=== PATIENT | male | born 1960 ===

== ENCOUNTER 2017-03-28 06:05 | Day surgery (SDC) | payer BC ==
[2017-03-28 07:08] VITALS: BMI 30.8
[2017-03-28] MEDS ORDERED: Lidocaine 2% w Epi 1:100,000 Inj IJ ONE (07:12)
[2017-03-28] MEDS ORDERED: EPINEPHrine 1 mg/ml (1:1000) Inj ONE ×2 (07:12→07:52)
[2017-03-28] MEDS ORDERED: Lidocaine 1% Inj (20ml) ONE (07:12)
[2017-03-28] MEDS ORDERED: Succinylcholine 200 mg/10 ml Inj IV ONE (07:23)
[2017-03-28] MEDS ORDERED: Lidocaine 4% (Laryng-O-Jet) Kit MM ONE (07:23)
[2017-03-28] MEDS ORDERED: Lidocaine 1% 5ml Abboject IV ONE (07:23)
[2017-03-28] MEDS ORDERED: Midazolam 2 MG/2 ML VIAL ONE (07:23)
[2017-03-28] MEDS ORDERED: Propofol 10 mg/ml Inj (20 ML) ONE (07:23)
--- NOTE | 2017-03-28 07:36 | CP.SDSHP ---
Same Day Surgery H & P - History Proposed Procedure: Right shoulder arthroscopy, possible rotator cuff repair, possible labral repair, possible acromioplasty/synovectomy Pre-Op Diagnosis: Right shoulder rotator cuff tear, impindement, SLAP tear, biceps tendinitis - Previous Medical/Surgical History Cardiac: Hypertension - Allergies Allergies: Allergies No Known Allergies Allergy (Verified 03/28/17 07:07) - Physical Exam Vital Signs: Vital Signs 03/28/17 03/28/17 06:55 07:00 Temperature 97.8 F Pulse Rate 66 66 Respiratory 18 Rate Blood Pressure 129/79 O2 Sat by Pulse 98 Oximetry Mental Status: Alert & Oriented x3 Neuro: WNL Heart: WNL Lungs: WNL GI: WNL - {Optional Preform as Required} Ortho: Other (+radial pulses, sensation intact, Painful limited ROM right shoulder) Other Pertinent Findings: MRI on chart, reviewed - Impression Impression: 57M with right shoulder rotator cuff tear, labral tear, impingement for arthroscopy Pt. Evaluated Today:Candidate for Anesthesia & Procedure: Yes - Date & Time Date: 03/28/17 Time: 07:36 Short Stay Discharge - Short Stay Discharge Admitting Diagnosis/Reason for Visit: M25.511,S46.011A Disposition: HOME/ ROUTINE Referrals: Jacob Moore III, MD [Primary Care Provider] - Past Patient History - Infectious Disease Hx of Infectious Diseases: C.diff - Past Medical History & Family History Past Medical History?: Yes - Past Social History Smoking Status: Former Smoker - CARDIAC Hx Cardiac Disorders: Yes Hx Hypertension: Yes - PULMONARY Hx Respiratory Disorders: No - NEUROLOGICAL Hx Neurological Disorder: No - HEENT Hx HEENT Problems: No - RENAL Hx Chronic Kidney Disease: No - ENDOCRINE/METABOLIC Hx Endocrine Disorders: No - HEMATOLOGICAL/ONCOLOGICAL Hx Blood Disorders: No Hx Blood Transfusions: No - INTEGUMENTARY Hx Dermatological Problems: No - MUSCULOSKELETAL/RHEUMATOLOGICAL Hx Musculoskeletal Disorders: Yes Hx Arthritis: Yes - GASTROINTESTINAL Hx Gastrointestinal Disorders: No - GENITOURINARY/GYNECOLOGICAL Hx Genitourinary Disorders: No - PSYCHIATRIC Hx Emotional Abuse: No Hx Physical Abuse: No - SURGICAL HISTORY Hx Surgeries: Yes Hx Cholecystectomy: Yes - ANESTHESIA Hx Anesthesia: Yes Hx Anesthesia Reactions: No Hx Malignant Hyperthermia: No Has any member of the family had a problem w/ anesthesia?: No
[2017-03-28] MEDS ORDERED: Ropivacaine 0.5% 30ML IV ONE (07:38)
[2017-03-28] MEDS ORDERED: Lactated Ringer's 1,000 ML IV ONE (07:43)
[2017-03-28] MEDS ORDERED: Phenylephrine 10 mg/ml Inj ONE (08:15)
[2017-03-28] MEDS ORDERED: EPINEPHrine 1 mg/ml (1:1000) Inj IV ONE ×2 (08:41)
[2017-03-28] MEDS ORDERED: Lidocaine 1% Inj (20ml) IJ ONE (08:41)
[2017-03-28] MEDS ORDERED: ePHEDrine 50 mg/ml Inj ONE (09:13)
[2017-03-28] MEDS ORDERED: Sodium Chloride 0.9% 10 ML IV ONE (09:14)
[2017-03-28] MEDS ORDERED: Bacitracin Ointment 30 GM TUBE ONE (11:07)
[2017-03-28] MEDS ORDERED: HYDROmorphone 0.5 mg/0.5 ml ISec IVP PRN (11:40)
--- NOTE | 2017-03-28 11:44 | PCM.ANESB1 ---
Interscalene Block - Brachial Plexus Date of Procedure: 03/28/17 Anesthesiologist: Dr. Abad Pre-Procedure Diagnosis: Torn rotator cuff right shoulder Post-Procedure Diagnosis: Torn rotator cuff right shoulder Procedure Performed: Interscalene Block of Brachial Plexus Right - Procedure Interscalene Block of Brachial Plexus: This procedure was explained to the patient that it is for post-operative pain management. Consent was obtained after a thorough discussion with the patient regarding the benefits and possible complications of local anesthetic block of the Brachial Plexus at the Interscalene area. The patient was brought to the Operating Room and standard monitors were applied. Time out was held with the circulating nurse to confirm the correct surgery and appropriate block. After applying Oxygen by nasal cannula and administering IV Sedation, the patient's head was gently rotated away from the right operative shoulder and the anterior scalene groove was carefully palpated. The ultrasound transducer was then applied to the skin in the transverse plane and the brachial plexus was visualized lateral to the carotid artery and in between the anterior and middle scalene muscles. After identification,the anterior lateral portion of the neck was prepped with Chloraprep solution three times and Lidocaine 1% was injected subcutaneously for topical analgesia. At this point, a # 22 gauge Stimuplex 2 inches insulated needle was inserted into the interscalene groove and directed in a caudal and midline direction. The needle was inserted lateral to the ultrasound transducer in-plane towards the brachial plexus in a [id number] direction. Needle advancement was performed carefully under direct ultrasound visualization. Nerve stimulator was used and twitched of the affected extremity including the hand brachialis muscles, biceps and the deltoid was obtained at a current of 0.3MA. After repeated negative aspiration,5cc of 0.5% Ropivacaine were injected and this was followed with 25cc of 0.5% Ropivacaine. Under ultrasound guidance the local anesthetics were observed surrounding the roots of the brachial plexus. The needle was removed intact and sterile dressing was applied. The patient had stable vital signs, was conscious and in no apparent distress. The patient tolerated the interscalene block of the bracheal plexus well with stable vital signs and was prepared for subsequent surgery.
[2017-03-28] MEDS ORDERED: Lactated Ringer's 1,000 ML IV SCH (11:45)
[2017-03-28] MEDS ORDERED: Oxycodone/Acetaminophen 5/325 mg Tab PO PRN (11:55)
--- NOTE | 2017-03-28 12:41 | PCM.SURG1 ---
Surgeon's Initial Post Op Note - Surgeon's Notes Surgeon: Teresa Director Of Cath Lab: KIM Sutherland Type of Anesthesia: General Endo, Block Regional Anesthesia Administered By: Dr Abad Pre-Operative Diagnosis: Rotator cuff tear R shoulder Operative Findings: gr 3 rotator cufftear R shoulder. tear glenoid labrum. biceps tendon avulsion. Acromioclavicular joint arthropathy. Subacromial impingement Post-Operative Diagnosis: as above Operation Performed: arthroscvopic rotator cuff repair. arthroscopic biceps tenodesis. arthroscopic repair slap lesion. arthroscopic partial distal claviculectomy. arthroscopic acromioplasty. arthroscopic subacromial bursectomy/arthroscopic lysis of adhesions Specimen/Specimens Removed: synovium/cartilage/bone Estimated Blood Loss: EBL {In ML}: 10 Blood Products Given: N/A Drains Used: No Drains Post-Op Condition: Good Date of Surgery/Procedure: 03/28/17 Time of Surgery/Procedure: 08:40 (time in room/anesthesia induction time 7:43)
[2017-03-28 13:21] VITALS: RESP 18
[2017-03-28 14:14] VITALS: BP 114/69; PULSE 73; TEMP 97.6; O2SAT 99
--- NOTE | 2017-03-28 18:08 | OP ---
PROCEDURE DATE: 03/28/2017 PREOPERATIVE DIAGNOSIS: Rotator cuff tear on right shoulder. POSTOPERATIVE DIAGNOSES: 1. Grade 3 rotator cuff tear on right shoulder at leading edge of supraspinatus tendon. 2. Tear of glenoid labrum. 3. Avulsion biceps tendon from the superior aspect of the glenoid. 4. Acromiclavicular joint arthropathy. 5. Subacromial impingement. 6. Adhesions and bursitis in the subacromial space. SURGEON: Jacob Moore MD E COMMERCE DIRECTOR: LEODAN Woodward, certified registered nursing assistant warehouse manager. ANESTHESIA: General and regional anesthesia. ANESTHESIOLOGIST: [place] Abad MD OPERATIVE FINDINGS: 1. Again, grade 3 rotator cuff tear of the right shoulder. 2. Tear of glenoid labrum. 3. Biceps tendon avulsion. 4. AC joint arthropathy. 5. Subacromial impingement. 6. Bursitis and adhesions in the subacromial space. PROCEDURE: 1. Arthroscopic rotator cuff repair. 2. Arthroscopic intra-articular biceps tenodesis. 3. Arthroscopic labral repair. 4. Arthroscopic partial distal claviculectomy. 5. Extensive debridement and lysis of adhesions in the subacromial space with partial bursectomy. 6. Partial acromioplasty. BLOOD LOSS: Approximately 15 mL. COMPLICATIONS: None. DRAINS: None. OPERATIVE INDICATION: Omar Duncan is a gentleman who has severe right shoulder pain and restricted range of motion. The patient has a history of thrombocytopenia, alcoholic liver disease and hepatitis C. The patient was cleared for surgery by all areas. The patient has been refractory to conservative approach consisting of activity modification, intra-articular injection and therapy. Pros, cons, risks and benefits of surgical approach were discussed. Culturally competent manager of hospital was available, but patient did not need it. The possibility of stiffness, mechanical failure, infection, thromboembolic disease, secondary or later tertiary open surgeries discussed. The patient can no longer withstand the discomfort and wished the surgery be accomplished. OPERATIVE PROCEDURE: After having obtained informed consent, after the satisfactory induction of regional and general anesthesia by Dr. Abad, after having identified side, site and procedure and critical pause/time-out, the patient identified as Omar Duncan, he was placed a modified nichols chair position. The upper extremity Arthrex positioner was employed. After sterilely prepping and draping, the topographic anatomy of the shoulder was marked, spine and the scapula, and lateral aspect of the acromion and coracoid process. The joint is insufflated with 10 mL of 1% lidocaine without epinephrine. Using #11 blade, followed by spreading, followed by introduction of blunt trocar, the arthroscope was introduced. Examination of the joint commences. Triangulation was accomplished using #18 gauge spinal needle, taking great care to staying lateral to the coracoid process. Using #18 gauge spinal needle, followed by #11 blade, followed by spreading with the arthroscope posteriorly, the Wissinger nicholas was placed anteriorly and the cannula was introduced. With the arthroscope posteriorly, using the arthroscopic shaver, an extensive debridement of the glenohumeral joint was accomplished. A posterolateral portal was accomplished using #18 gauge spinal needle, followed by #11 blade, spreading, and at this point in time, after a thorough synovectomy and debridement of glenohumeral joint, there was found to be evidence of tear of the glenoid labrum with separation as well as biceps tendon avulsion. This was very obvious; please refer to the video photographs. The inner free edge of the tear was smoothed using the arthroscopic shaver. The interval between the labrum and the glenoid is developed, and this having been accomplished, attention was first turned to the intra-articular biceps tenodesis. The superior aspect of the glenoid tubercle was roughened using a drill bit to allow for healing. This having been accomplished, using the left lasso, the biceps tendon avulsion was gathered and pierced with the lasso. The nitinol wire was placed in the joint and posterolaterally, the straight hemostat was used to retrieve. The nitinol wire was retrieved, brought out posteriorly, and at this point in time, the fiber tape was brought out anteriorly. Drilling was accomplished probably at the 1 o'clock position. The arm was lifted in some abduction and tenodesis was accomplished by drilling, loading the anchor, and impacting the push lock anchor. This having been accomplished, the tenodesis having been accomplished, further debridement of the glenohumeral joint was accomplished at the superior aspect, drill holes were accomplished to allow bleeding, please refer to the video photographs. This having been accomplished, there was found to be a labral separation as well, extending to the root of the biceps tendon. The labral separation is developed using the 3.4 mm Cloud4Wi suction punch and a periosteum elevator. The wound was thoroughly irrigated. The lasso was placed around the labral tear, and in the same fashion, the fiber tape was brought out. The nitinol wire was brought out posteriorly. The fiber tape was brought out anteriorly. The anchor was loaded, and using the drill bit, followed by push lock anchor, the anchor was introduced. The wound was thoroughly irrigated at this point in time. A thorough debridement of glenohumeral joint was accomplished. The wound was thoroughly irrigated. The glenohumeral joint was debrided, and this having been accomplished, the labral tear having been fixed, the biceps having been tenodesed with the upper extremity now placed in dependency, the arthroscope was placed in the subacromial space. There was found to be dense adhesions and bursitis. A so-called mid and lateral port of Mclean portal was accomplished using a #18 gauge spinal needle, followed by #11 blade, followed by spreading. This having been accomplished with the arthroscope posteriorly and then posterolaterally, extensive debridement and lysis of adhesions of the subacromial space is accomplished using the arthroscopic shaver and the ArthroCare wand. With the arthroscope posterolaterally, using the arthroscopic shaver, and the ArthroCare wand, thorough debridement of glenohumeral joint was accomplished using arthroscopic shaver and the ArthroCare wand, and the [employer] surface wand. This having been accomplished, the undersurface of the acromion is debrided as well as the acromioclavicular joint. At this point in time, an extensive bursectomy, and this was very time consuming, it was accomplished using the arthroscopic shaver and the arthroscopic wand. With the arthroscope in the subacromial space posteriorly, using the grasper mid laterally, the rotator cuff tear was identified. It is carefully debrided using the 5.2 mm [employer] suction punch. The tear was debrided and the tear was mobilized. This having been accomplished, the inverted V repair for the rotator cuff will be accomplished. The Scorpion was used to deploy the fiber tape and a final portal was accomplished just off the acromion for the area to place the anchor. Using #18 gauge spinal needle, followed by #11 blade, followed by spreading with the arthroscope posteriorly, the Passport was placed into the joint with the arthroscope posteriorly, the fiber tape was placed shuttled superiorly and at this point in time with the arm in abduction and internal rotation, the anchor was loaded, the anchor was impacted, and then the PEEK anchor is twisted into the humeral bone with the arm in abduction and rotation, this is excellent. The wound was thoroughly irrigated and further repair was accomplished with a separate fiber wire placed with the Scorpion and with a lasso and the fiber wire was brought out superiorly and tied with a human service specialist. This having been accomplished, attention was turned to the acromion. An acromioplasty was accomplished using the arthroscopic bur, and with the arthroscope now mid laterally, the bur was placed anteriorly and a partial distal claviculectomy was accomplished using the arthroscopic kun to the distal 1 cm of the clavicle to include the articular cartilage. With the arthroscope posteriorly, debridement of the distal 1 cm of the clavicle to include the articular cartilage is accomplished. Partial acromioplasty having been accomplished, the subacromial space was carefully debrided using the shaver. The wound was thoroughly irrigated. Partial acromioplasty was accomplished, partial distal claviculectomy. Bleeding points controlled with the wand. The wound was thoroughly irrigated. Closure was in layers with interrupted Vicryl and nylon. Naveed Gaviria compression dressing and shoulder abduction, so-called gunslinger splint was applied. Jacob Moore MD
== END 2017-03-28 15:15 | disposition home or self-care (01) ==
LOC: H.OPSURG 06:05
PROVIDERS: ATTEND Orthopaedic Surgery
DX: M25.511 Pain in right shoulder (principal); I10 Essential (primary) hypertension; Z87.891 Personal history of nicotine dependence; M75.101 Unspecified rotator cuff tear or rupture of right shoulder, not specified as traumatic; M75.41 Impingement syndrome of right shoulder
CPT/HCPCS: 29823; 29827; 29828; 88304; C1713; J0171; J0330; J0690; J2250; J2370; J2704; J2765; J3010; J7030; J7120